=== PATIENT | male | born 1935 | race Caucasian/White ===

== ENCOUNTER 2019-09-28 10:00 | Outpatient (CLI) | payer MEDICARE, OTHER | END 2019-09-28 23:59 | disposition home or self-care (01) | LOC: MSC 10:00 | PROVIDERS: ATTEND Internal Medicine | DX: R42 Dizziness and giddiness (principal); G47.30 Sleep apnea, unspecified; G47.00 Insomnia, unspecified; R19.4 Change in bowel habit; I10 Essential (primary) hypertension; D56.9 Thalassemia, unspecified; D50.9 Iron deficiency anemia, unspecified; E29.1 Testicular hypofunction; N40.0 Benign prostatic hyperplasia without lower urinary tract symptoms; F32.9 Major depressive disorder, single episode, unspecified; Z79.899 Other long term (current) drug therapy ==

== ENCOUNTER 2019-11-30 08:50 | Outpatient (CLI) | payer MEDICARE, OTHER | END 2019-11-30 23:59 | disposition home or self-care (01) | LOC: MSC 08:50 | PROVIDERS: ATTEND Internal Medicine | DX: R63.4 Abnormal weight loss (principal); Z68.23 Body mass index [BMI] 23.0-23.9, adult; R42 Dizziness and giddiness; R19.4 Change in bowel habit; G47.00 Insomnia, unspecified; D56.9 Thalassemia, unspecified; F32.9 Major depressive disorder, single episode, unspecified; I10 Essential (primary) hypertension; G47.30 Sleep apnea, unspecified; N40.0 Benign prostatic hyperplasia without lower urinary tract symptoms; E29.1 Testicular hypofunction; L71.9 Rosacea, unspecified; D50.9 Iron deficiency anemia, unspecified; Z79.899 Other long term (current) drug therapy | CPT/HCPCS: 71046; G0463 ==

== ENCOUNTER 2020-01-04 09:05 | Outpatient (CLI) | payer MEDICARE, OTHER ==
[2020-01-04 10:29] LABS: ALBUMIN 3.7 g/dL (3.4-5.0); BILIRUBIN,TOTAL 0.7 mg/dL (0.2-1.0); CALCIUM, SERUM 9.6 mg/dL (8.5-10.1); CREATININE 1.1 mg/dL (0.6-1.3); PHOSPHORUS 3.7 mg/dL (2.5-4.9); POTASSIUM 4.8 mmol/L (3.5-5.1); TOTAL PROTEIN, SERUM 6.4 g/dL (6.4-8.2)
[2020-01-04 10:34] LABS: EOSINOPHILS % (AUTO) 1.6 % (0.0-6.0); HEMATOCRIT 30 % (39-51); HEMOGLOBIN 9.6 g/dL (13.5-17.5); LYMPHOCYTES # (AUTO) 0.9 /CMM (0.8-4.8); LYMPHOCYTES % (AUTO) 20.4 % (20.0-44.0); MEAN CORPUSCULAR HGB CONC 32 g/dl (31.0-36.0); MEAN CORPUSCULAR VOLUME 67 fL (80-96); MONOCYTES # (AUTO) 0.3 /CMM (0.1-1.30); MONOCYTES % (AUTO) 7.1 % (2.0-12.0); NEUTROPHILS # (AUTO) 3.1 /CMM (1.8-8.9); NEUTROPHILS % (AUTO) 69.9 % (43.0-81.0); PLATELET COUNT (AUTO) 176 /CMM (150-450); RED BLOOD CELL COUNT(AUTO) 4.44 MIL/uL (4.5-6.0); WHITE BLOOD COUNT (AUTO) 4.4 K/uL (4.3-11.0)
[2020-01-04 10:37] LABS: THYROID STIMULATING HORMONE 2.104 uIU/mL (0.358-3.74)
[2020-01-04 11:18] LABS: EOSINOPHILS % (MANUAL) 1 % (0-4); LYMPHOCYTES % (MANUAL) 17 % (16-48); MONOCYTES % (MANUAL) 5 % (0-11.0); NEUTROPHILS % (MANUAL) 77 (42-76)
== END 2020-01-04 23:59 | disposition home or self-care (01) ==
LOC: MSC 09:05
PROVIDERS: ATTEND Internal Medicine
DX: I10 Essential (primary) hypertension (principal); R42 Dizziness and giddiness; F32.9 Major depressive disorder, single episode, unspecified; G47.30 Sleep apnea, unspecified; M19.90 Unspecified osteoarthritis, unspecified site; R19.4 Change in bowel habit; D56.9 Thalassemia, unspecified; N40.0 Benign prostatic hyperplasia without lower urinary tract symptoms; E29.1 Testicular hypofunction; R63.4 Abnormal weight loss; Z68.25 Body mass index [BMI] 25.0-25.9, adult; G47.00 Insomnia, unspecified; Z79.1 Long term (current) use of non-steroidal anti-inflammatories (NSAID); Z79.899 Other long term (current) drug therapy
CPT/HCPCS: 36415; 80053; 83735; 84100; 84443; 85007; 85025; G0463

== ENCOUNTER 2020-11-20 08:53 | Outpatient (CLI) | payer MEDICARE, OTHER | END 2020-11-20 23:59 | disposition home or self-care (01) | LOC: MSC 08:53 | PROVIDERS: ATTEND Internal Medicine | DX: G47.00 Insomnia, unspecified (principal); F32.9 Major depressive disorder, single episode, unspecified; I10 Essential (primary) hypertension; R42 Dizziness and giddiness; G47.30 Sleep apnea, unspecified; M19.90 Unspecified osteoarthritis, unspecified site; R19.4 Change in bowel habit; J30.2 Other seasonal allergic rhinitis; D56.9 Thalassemia, unspecified; N40.0 Benign prostatic hyperplasia without lower urinary tract symptoms; E29.1 Testicular hypofunction; L71.9 Rosacea, unspecified; R63.4 Abnormal weight loss; K46.9 Unspecified abdominal hernia without obstruction or gangrene; Z79.1 Long term (current) use of non-steroidal anti-inflammatories (NSAID); Z79.82 Long term (current) use of aspirin; Z79.899 Other long term (current) drug therapy ==

== ENCOUNTER 2021-02-14 11:23 | Outpatient (CLI) | payer MEDICARE, OTHER | END 2021-02-14 23:59 | disposition home or self-care (01) | LOC: MSC 11:23 | PROVIDERS: ATTEND Internal Medicine | DX: Z51.89 Encounter for other specified aftercare (principal); D56.9 Thalassemia, unspecified; G47.00 Insomnia, unspecified; I10 Essential (primary) hypertension; R42 Dizziness and giddiness; F32.A Depression, unspecified; G47.30 Sleep apnea, unspecified; M19.90 Unspecified osteoarthritis, unspecified site; Z79.1 Long term (current) use of non-steroidal anti-inflammatories (NSAID); R19.4 Change in bowel habit; J30.2 Other seasonal allergic rhinitis; N40.0 Benign prostatic hyperplasia without lower urinary tract symptoms; E29.1 Testicular hypofunction; L71.9 Rosacea, unspecified; R63.4 Abnormal weight loss; Z68.29 Body mass index [BMI] 29.0-29.9, adult; Z79.82 Long term (current) use of aspirin; Z79.899 Other long term (current) drug therapy ==

== ENCOUNTER 2021-04-04 09:15 | Outpatient (CLI) | payer MEDICARE, OTHER | END 2021-04-04 23:59 | disposition home or self-care (01) | LOC: MSC 09:15 | PROVIDERS: ATTEND Internal Medicine | DX: U07.1 COVID-19 (principal); D56.9 Thalassemia, unspecified; G47.00 Insomnia, unspecified; I10 Essential (primary) hypertension; R42 Dizziness and giddiness; F32.A Depression, unspecified; G47.30 Sleep apnea, unspecified; M19.90 Unspecified osteoarthritis, unspecified site; Z79.1 Long term (current) use of non-steroidal anti-inflammatories (NSAID); R19.4 Change in bowel habit; J30.2 Other seasonal allergic rhinitis; N40.0 Benign prostatic hyperplasia without lower urinary tract symptoms; E29.1 Testicular hypofunction; L71.9 Rosacea, unspecified; R63.4 Abnormal weight loss; K46.9 Unspecified abdominal hernia without obstruction or gangrene; Z79.899 Other long term (current) drug therapy ==

== ENCOUNTER 2021-04-16 09:30 | Outpatient (CLI) | payer MEDICARE, OTHER | END 2021-04-16 23:59 | disposition home or self-care (01) | LOC: MSC 09:30 | PROVIDERS: ATTEND Internal Medicine | DX: R42 Dizziness and giddiness (principal); Z86.16 Personal history of COVID-19; D56.9 Thalassemia, unspecified; G47.00 Insomnia, unspecified; I10 Essential (primary) hypertension; F32.A Depression, unspecified; G47.30 Sleep apnea, unspecified; M19.90 Unspecified osteoarthritis, unspecified site; Z79.1 Long term (current) use of non-steroidal anti-inflammatories (NSAID); R19.4 Change in bowel habit; J30.2 Other seasonal allergic rhinitis; N40.0 Benign prostatic hyperplasia without lower urinary tract symptoms; E29.1 Testicular hypofunction; L71.9 Rosacea, unspecified; R63.4 Abnormal weight loss; K46.9 Unspecified abdominal hernia without obstruction or gangrene; Z79.899 Other long term (current) drug therapy ==

== ENCOUNTER 2021-04-17 08:49 | Outpatient (CLI) | payer MEDICARE, OTHER | END 2021-04-17 23:59 | disposition home or self-care (01) | LOC: CT 08:49 | PROVIDERS: ATTEND Internal Medicine | DX: J32.2 Chronic ethmoidal sinusitis (principal) | CPT/HCPCS: 70450-TC ==

== ENCOUNTER 2021-05-16 11:03 | Outpatient (CLI) | payer MEDICARE, OTHER | END 2021-05-16 23:59 | disposition home or self-care (01) | LOC: MSC 11:03 | PROVIDERS: ATTEND Internal Medicine | DX: R42 Dizziness and giddiness (principal); Z86.16 Personal history of COVID-19; D56.9 Thalassemia, unspecified; G47.00 Insomnia, unspecified; I10 Essential (primary) hypertension; F32.A Depression, unspecified; G47.30 Sleep apnea, unspecified; M19.90 Unspecified osteoarthritis, unspecified site; Z79.1 Long term (current) use of non-steroidal anti-inflammatories (NSAID); R19.4 Change in bowel habit; J30.2 Other seasonal allergic rhinitis; N40.0 Benign prostatic hyperplasia without lower urinary tract symptoms; E29.1 Testicular hypofunction; L71.9 Rosacea, unspecified; R63.4 Abnormal weight loss; Z68.29 Body mass index [BMI] 29.0-29.9, adult; K46.9 Unspecified abdominal hernia without obstruction or gangrene; Z79.899 Other long term (current) drug therapy ==

== ENCOUNTER 2021-08-15 10:19 | Outpatient (CLI) | payer MEDICARE, OTHER | END 2021-08-15 23:59 | disposition home or self-care (01) | LOC: MSC 10:19 | PROVIDERS: ATTEND Internal Medicine | DX: G47.00 Insomnia, unspecified (principal); G47.30 Sleep apnea, unspecified; F32.A Depression, unspecified; R42 Dizziness and giddiness; D56.9 Thalassemia, unspecified; I10 Essential (primary) hypertension; M19.90 Unspecified osteoarthritis, unspecified site; R19.4 Change in bowel habit; J30.2 Other seasonal allergic rhinitis; N40.0 Benign prostatic hyperplasia without lower urinary tract symptoms; E29.1 Testicular hypofunction; Z86.16 Personal history of COVID-19; L71.9 Rosacea, unspecified; R63.4 Abnormal weight loss; K46.9 Unspecified abdominal hernia without obstruction or gangrene ==

== ENCOUNTER 2021-11-14 10:11 | Outpatient (CLI) | payer MEDICARE, OTHER ==
[2021-11-14 11:28] LABS: BILIRUBIN,URINE NEGATIVE (NEGATIVE); COLOR,URINE YELLOW (YELLOW); LEUKOCYTE ESTERASE ,URINE NEGATIVE (NEGATIVE); NITRITE, URINE NEGATIVE (NEGATIVE); PH,URINE 5.5 (5.0-8.0); PROTEIN,URINE NEGATIVE (NEGATIVE); UGLUCOSE NEGATIVE (NEGATIVE); UROBILINOGEN,URINE 0.2 EU/dL (0.2)
[2021-11-14 11:49] LABS: BACTERIA,URINE None seen /HPF (None Seen); SQUAMOUS EPITHELIAL CELL,UR Few /HPF (None Seen); WBC,URINE NONE SEEN /HPF (0-3)
[2021-11-14 11:58] LABS: ALBUMIN 3.5 g/dL (3.4-5.0); BILIRUBIN,TOTAL 0.7 mg/dL (0.2-1.0); CREATININE 1.2 mg/dL (0.6-1.3); MAGNESIUM 1.9 mg/dL (1.8-2.4); PHOSPHORUS 3.3 mg/dL (2.5-4.9); TOTAL PROTEIN, SERUM 6.1 g/dL (6.4-8.2); URINE TOTAL PROTEIN 29.9 mg/dL (0-11.9)
== END 2021-11-14 23:59 | disposition home or self-care (01) ==
LOC: MSC 10:11
PROVIDERS: ATTEND Internal Medicine
DX: D64.89 Other specified anemias (principal); I12.9 Hypertensive chronic kidney disease with stage 1 through stage 4 chronic kidney disease, or unspecified chronic kidney disease; N18.30 Chronic kidney disease, stage 3 unspecified; G47.00 Insomnia, unspecified; R42 Dizziness and giddiness; Z86.16 Personal history of COVID-19; D56.9 Thalassemia, unspecified; F32.A Depression, unspecified; M19.90 Unspecified osteoarthritis, unspecified site; Z79.891 Long term (current) use of opiate analgesic; R19.4 Change in bowel habit; J30.2 Other seasonal allergic rhinitis; N40.0 Benign prostatic hyperplasia without lower urinary tract symptoms; E29.1 Testicular hypofunction; L71.9 Rosacea, unspecified; R63.4 Abnormal weight loss; K46.9 Unspecified abdominal hernia without obstruction or gangrene; Z79.899 Other long term (current) drug therapy
CPT/HCPCS: 83735; 84100; 81001; 80053; 82043; 84155; G0463; 36415

== ENCOUNTER 2021-11-20 14:30 | Outpatient (CLI) | payer MEDICARE, OTHER | END 2021-11-20 23:59 | disposition home or self-care (01) | LOC: MSC 14:30 | PROVIDERS: ATTEND Internal Medicine | DX: I12.9 Hypertensive chronic kidney disease with stage 1 through stage 4 chronic kidney disease, or unspecified chronic kidney disease (principal); N18.30 Chronic kidney disease, stage 3 unspecified; G47.00 Insomnia, unspecified; D64.9 Anemia, unspecified; G47.30 Sleep apnea, unspecified; D56.9 Thalassemia, unspecified; Z86.16 Personal history of COVID-19; R42 Dizziness and giddiness; F32.A Depression, unspecified; M19.90 Unspecified osteoarthritis, unspecified site; R19.4 Change in bowel habit; J30.2 Other seasonal allergic rhinitis; N40.0 Benign prostatic hyperplasia without lower urinary tract symptoms; E29.1 Testicular hypofunction; L71.9 Rosacea, unspecified; R63.4 Abnormal weight loss; K46.9 Unspecified abdominal hernia without obstruction or gangrene ==

== ENCOUNTER 2022-02-18 10:20 | Outpatient (CLI) | payer MEDICARE, OTHER | END 2022-02-18 23:59 | disposition home or self-care (01) | LOC: MSC 10:20 | PROVIDERS: ATTEND Internal Medicine | DX: G89.29 Other chronic pain (principal); M54.16 Radiculopathy, lumbar region; D64.9 Anemia, unspecified; D56.9 Thalassemia, unspecified; I12.9 Hypertensive chronic kidney disease with stage 1 through stage 4 chronic kidney disease, or unspecified chronic kidney disease; N18.30 Chronic kidney disease, stage 3 unspecified; G47.00 Insomnia, unspecified; G47.30 Sleep apnea, unspecified; R42 Dizziness and giddiness; Z86.16 Personal history of COVID-19; F32.A Depression, unspecified; M19.90 Unspecified osteoarthritis, unspecified site; R19.4 Change in bowel habit; J30.2 Other seasonal allergic rhinitis; N40.0 Benign prostatic hyperplasia without lower urinary tract symptoms; E29.1 Testicular hypofunction; L71.9 Rosacea, unspecified; R63.4 Abnormal weight loss; K46.9 Unspecified abdominal hernia without obstruction or gangrene ==

== ENCOUNTER 2022-05-15 09:57 | Outpatient (CLI) | payer MEDICARE, OTHER | END 2022-05-15 23:59 | disposition home or self-care (01) | LOC: MSC 09:57 | PROVIDERS: ATTEND Internal Medicine | DX: G47.00 Insomnia, unspecified (principal); F32.9 Major depressive disorder, single episode, unspecified; I12.9 Hypertensive chronic kidney disease with stage 1 through stage 4 chronic kidney disease, or unspecified chronic kidney disease; N18.30 Chronic kidney disease, stage 3 unspecified; G47.30 Sleep apnea, unspecified; D64.9 Anemia, unspecified; D56.9 Thalassemia, unspecified; R42 Dizziness and giddiness; Z86.16 Personal history of COVID-19; M19.90 Unspecified osteoarthritis, unspecified site; R19.4 Change in bowel habit; E29.1 Testicular hypofunction; R63.4 Abnormal weight loss; Z68.27 Body mass index [BMI] 27.0-27.9, adult; G89.29 Other chronic pain; M54.16 Radiculopathy, lumbar region ==